=== PATIENT | female | born 1975 | race Caucasian/White ===

== ENCOUNTER 2016-10-29 10:14 | Emergency (ER) | payer OTHER ==
[~2016-10-29] VITALS: Ht 157.5 cm; Wt 70.0 kg
[~2016-10-29 10:14] MED LIST: IBUP-1542 PO
[2016-10-29 10:16] VITALS: Ht 157.5 cm; Wt 70.0 kg
--- NOTE | 2016-10-29 10:36 | ERD ---
ER Documentation Chief Complaint Date/Time DATE: 10/29/16 TIME: 10:35 Chief Complaint pt bib self with c/o "I have kidney infection" since Sunday HPI Patient is a 40-year-old female who presents to the ED with dysuria and urgency and decrease in urine since 5 days. She states that she has had multiple urinary tract infections in the past. She states that this is exactly what she has expressed in the past. She denies fever or chills. She denies back pain. Denies nausea, vomiting or diarrhea or abdominal pain. Denies headache or dizziness, neck pain or neck stiffness. She has not taken any medication for her symptoms. She is unsure which antibiotic she has taken in the past for her infections. She has no other complaints ROS All systems reviewed and are negative except as per history of present illness. Medications Home Meds Active Scripts Naproxen* (Naprosyn*) 500 Mg Tablet, 500 MG PO BID Y for PAIN AND/OR INFLAMMATION, #30 TAB Prov:FELICITY RODRIGUEZ PA-C 10/29/16 Nitrofurantoin Monohyd Macrocr* (Macrobid*) 100 Mg Capsr, 100 MG PO BID for 14 Days, CAP Prov:FELICITY RODRIGUEZ PA-C 10/29/16 Ibuprofen* (Motrin*) 600 Mg Tab, 600 MG PO Q6H Y for PAIN AND OR ELEVATED TEMP, #30 TAB Prov:ANGIE FRANCES PA-C 09/04/15 Ibuprofen* (Motrin*) 600 Mg Tab, 600 MG PO Q6H Y for PAIN AND OR ELEVATED TEMP, #30 Prov:CHEMA GRIFFITHS MD 02/09/15 Allergies Allergies: Coded Allergies: No Known Allergy (Unverified , 09/04/15) PMhx/Soc History of Surgery: No Anesthesia Reaction: No Hx Neurological Disorder: No Hx Respiratory Disorders: No Hx Cardiac Disorders: No Hx Psychiatric Problems: No Hx Miscellaneous Medical Probl: No Hx Alcohol Use: No Hx Substance Use: No Hx Tobacco Use: No FmHx Family History: No coronary disease, No diabetes, No other Physical Exam Vitals Vital Signs Date Time Temp Pulse Resp B/P Pulse Ox O2 Delivery O2 Flow Rate FiO2 10/29/16 10:16 98.3 71 16 119/60 97 Physical Exam GENERAL: Well-developed, well-nourished female. Appears in no acute distress. HEAD: Normocephalic, atraumatic. LUNG: Clear to auscultation bilaterally. No rhonchi, wheezing, rales or coarse breath sounds. HEART: Regular rate and rhythm. No murmurs, rubs or gallops. ABDOMEN: No scars, ecchymosis or rashes noted. Soft, nontender, and nondistended. Positive bowel sounds in all four quadrants. No rebound tenderness , no guarding. (-) McBurneys point tenderness. No CVA tenderness. BACK: No midline tenderness. Extremities: Equal pulses bilaterally. No peripheral clubbing, cyanosis or edema. No unilateral leg swelling. NEUROLOGIC: Alert and oriented. Moving all four extremities. 5/5 strength in all extremities. Normal speech. Steady gait. SKIN: Normal color. Warm and dry. No rashes or lesions. Capillary refill < 2 seconds Results 24 hrs Laboratory Tests Test 10/29/16 10:50 Bedside Urine pH (LAB) 5.5 Bedside Urine Protein (LAB) 2+ Bedside Urine Glucose (UA) Negative Bedside Urine Ketones (LAB) Negative Bedside Urine Blood 3+ Bedside Urine Nitrite (LAB) Negative Bedside Urine Leukocyte Esterase (L 1+ Procedures/MDM ER COURSE: I kept the patient and/or family informed of laboratory and diagnostic imaging results throughout the emergency room course. Laboratory studies Urine dip 1+ leukocytes, no nitrites, 3+ blood. Negative test MEDICAL DECISION MAKING: This is a 40-year-old female who presents with dysuria and urgency 5 days. Vital signs were reviewed. Patient is afebrile. Patient is not hypoxic. Patient has a UTI. Low suspicion for ovarian torsion, PID, tuboovarian abscess , ectopic , bowel obstruction, pyelonephritis, UTI, appendicitis, cervicitis, septic , molar . Low suspicion for septic stone, obstructive stone, nephrolithiasis. DISCHARGE: At this time, patient is stable for discharge and outpatient management with no new complaints during the ER course. Patient was sent home with Drew Candelaria. Patient will be discharged home with instructions to recheck for new or worsening symptoms such as fever, nausea, weakness, LOC and to follow up with primary care in the next 1-2 days. Patient was advised to return to the ER for any new or worsening symptoms. Plan was discussed and patient and/or family understands and agrees. Home instructions were given. Departure Diagnosis: Primary Impression: Dysuria Condition: Stable FELICITY RODRIGUEZ PA-C October 29, 2016 10:36
[2016-10-29 10:47] LABS: URINE BLOOD (Dip) POC 3+ (NEGATIVE)
[2016-10-29] MEDS ORDERED: NITR-58 PO (10:52)
[2016-10-29] MEDS ORDERED: NAPR-260 PO (10:52)
== END 2016-10-29 11:45 | disposition home or self-care (01) ==
LOC: FTE 10:14
DX: R30.0 Dysuria (principal)
CPT/HCPCS: 81003; Z7502; 99283

== ENCOUNTER 2017-03-08 16:31 | Emergency (ER) | payer OTHER ==
[~2017-03-08] VITALS: Ht 157.5 cm; Wt 72.5 kg
[~2017-03-08 16:31] MED LIST changes: +NAPR-260 PO; +NITR-58 PO
[2017-03-08 16:43] VITALS: Ht 157.5 cm; Wt 72.5 kg
[2017-03-08] MEDS ORDERED: IBUPROFEN 800 MG TAB PO ONE (18:30)
--- NOTE | 2017-03-08 18:38 | ERD ---
ER Documentation Chief Complaint Date/Time DATE: 03/08/17 TIME: 18:37 Chief Complaint pain with urination HPI This is a 41-year-old female who presents the emergency department today complaining of burning and pain with urination for the past 2 weeks. States she has not seen her primary care doctor but it is too difficult to get into them. Denies any nausea vomiting, fevers or chills, back pain. States she has had urinary tract infections in the past and this feels similar. ROS All systems reviewed and are negative except as per history of present illness. Medications Home Meds Active Scripts Ibuprofen* (Motrin*) 600 Mg Tab, 600 MG PO Q6, #30 TAB Prov:RICARDO RICHARDSON PA-C 03/08/17 Cephalexin* (Keflex*) 500 Mg Capsule, 500 MG PO QID for 7 Days, CAP Prov:RICARDO RICHARDSON PA-C 03/08/17 Naproxen* (Naprosyn*) 500 Mg Tablet, 500 MG PO BID Y for PAIN AND/OR INFLAMMATION, #30 TAB Prov:FELICITY RODRIGUEZ PA-C 10/29/16 Nitrofurantoin Monohyd Macrocr* (Macrobid*) 100 Mg Capsr, 100 MG PO BID for 14 Days, CAP Prov:FELICITY RODRIGUEZ PA-C 10/29/16 Ibuprofen* (Motrin*) 600 Mg Tab, 600 MG PO Q6H Y for PAIN AND OR ELEVATED TEMP, #30 TAB Prov:ANGIE FRANCES PA-C 09/04/15 Ibuprofen* (Motrin*) 600 Mg Tab, 600 MG PO Q6H Y for PAIN AND OR ELEVATED TEMP, #30 Prov:CHEMA GRIFFITHS MD 02/09/15 Allergies Allergies: Coded Allergies: No Known Allergy (Unverified , 03/08/17) PMhx/Soc History of Surgery: No Anesthesia Reaction: No Hx Neurological Disorder: No Hx Respiratory Disorders: No Hx Cardiac Disorders: No Hx Psychiatric Problems: No Hx Miscellaneous Medical Probl: No Hx Alcohol Use: No Hx Substance Use: No Hx Tobacco Use: No Physical Exam Vitals Vital Signs Date Time Temp Pulse Resp B/P Pulse Ox O2 Delivery O2 Flow Rate FiO2 03/08/17 16:43 97.8 73 19 126/64 99 Physical Exam Const: NAD Head: Atraumatic Eyes: Normal Conjunctiva ENT: Normal External Ears, Nose and Mouth. Neck: Full range of motion..~ No meningismus. Resp: Clear to auscultation bilaterally Cardio: Regular rate and rhythm, no murmurs Abd: Soft, mild suprapubic tenderness, non distended. Normal bowel sounds. No tenderness at McBurney's Skin: No petechiae or rashes Back: No midline or flank tenderness Ext: No cyanosis, or edema Neur: Awake and alert Psych: Normal Mood and Affect Results 24 hrs Laboratory Tests Test 03/08/17 18:43 Urine Color YELLOW Urine Clarity CLOUDY Urine pH 5.0 Urine Specific [place] 1.028 Urine Ketones NEGATIVEmg/dL Urine Nitrite NEGATIVEmg/dL Urine Bilirubin NEGATIVEmg/dL Urine Urobilinogen NEGATIVEmg/dL Urine Leukocyte Esterase 2+[place]/ul Urine Microscopic RBC 2/HPF Urine Microscopic WBC 12/HPF Urine Renal Epithelial Cells FEW/HPF Urine Hemoglobin 2+mg/dL Urine Glucose NEGATIVEmg/dL Urine Total Protein NEGATIVEmg/dl Current Medications Medications (Trade) Dose Ordered Sig/Teddy Route PRN Reason Start Time Stop Time Status Last Admin Dose Admin Ibuprofen (Motrin) 800 mg ONCE ONCE PO 03/08/17 18:30 03/08/17 18:31 DC Cephalexin (Keflex) 500 mg ONCE ONCE PO 03/08/17 19:30 03/08/17 19:31 DC Procedures/MDM This is a 41-year-old female presents the emergency department today complaining of burning and pain with urination for the past 2 weeks. Patient has no other symptoms and I do not feel that she requires a full workup at this time. I did obtain a UA. UA shows 2+ leukocyte esterase and 12 microscopic white blood cells. Negative nitrites. patient symptoms at this time is consistent with urinary tract infection. Patient is afebrile and otherwise well-appearing. She denied any back or flank pain. I have low suspicion for pyelonephritis or nephrolithiasis. Patient indicated she was going to have a hard time getting to her pharmacy and was therefore given her first dose of Keflex here in the emergency department. Patient was also given motrin for pain.. She will be given a prescription for Motrin for home in addition to the Keflex At this time the patient is stable for discharge and outpatient management. Patient should follow up with their PCP in the next 1-2 days. They may return to the emergency department sooner for any persistent or worsening of symptoms. Patient understood and agreed with the plan.. Departure Diagnosis: Primary Impression: UTI (urinary tract infection) Urinary tract infection type: site unspecified Hematuria presence: without hematuria Qualified Code: N39.0 - Urinary tract infection without hematuria, site unspecified Condition: Fair RICARDO RICHARDSON PA-C Mar 08, 2017 18:38
[2017-03-08 19:19] LABS: ADD UMIC YES; UR ASCORBIC ACID NEGATIVE (NEGATIVE); UR BILIRUBIN (Dip) NEGATIVE (NEGATIVE); UR BLOOD (Dip) 2+ mg/dL (NEGATIVE); UR CLARITY CLOUDY (CLEAR); UR COLOR YELLOW (YELLOW); UR GLUCOSE (Dip) NEGATIVE (NEGATIVE); UR KETONES (Dip) NEGATIVE (NEGATIVE); UR LEUKOCYTE ESTERASE (Dip) 2+ Leu/ul (NEGATIVE); UR NITRITE (Dip) NEGATIVE (NEGATIVE); UR RBC 2 /HPF (0-5); UR RENAL EPITHELIAL CELL FEW /HPF (NONE SEEN); UR SPECIFIC GRAVITY (Dip) 1.028 (1.003-1.030); UR TOTAL PROTEIN (Dip) NEGATIVE (NEGATIVE); UR UROBILINOGEN (Dip) NEGATIVE (NEGATIVE)
[2017-03-08] MEDS ORDERED: CEPHALEXIN 500 MG CAP PO ONE (19:30)
[2017-03-08] MEDS ORDERED: CEPH-443 PO (19:30)
[2017-03-08] MEDS ORDERED: IBUP-1542 PO (19:31)
== END 2017-03-08 19:43 | disposition home or self-care (01) ==
LOC: FTE 16:31
DX: N39.0 Urinary tract infection, site not specified (principal)
CPT/HCPCS: 81001; Z7502; Z7610; 99283

== ENCOUNTER 2017-04-27 14:41 | Emergency (ER) | payer OTHER ==
[~2017-04-27] VITALS: Wt 72.0 kg
[~2017-04-27 14:41] MED LIST changes: +CEPH-443 PO
--- NOTE | 2017-04-27 19:03 | RADRPT ---
PROCEDURE: CT brain without IV contrast. CLINICAL INDICATION: Headache/trauma. TECHNIQUE: CT examination of the brain was performed on a 64-slice multidetector scanner. The pat ient was examined without IV contrast. Sagittal and coronal reformatted images were made. The imag es were reviewed on a PACS workstation. DICOM images are available. Total radiation dose: Total CTDIvol: 45 mGy. Total DLP: 720 mGy-cm. One or more of the following dose reduction techniques were used: automated exposure control, adjustment of the mA and/or kV acco rding to patient size, or use of iterative reconstruction technique COMPARISON: None available. FINDINGS: The ventricles and cerebral sulci are normal in size and morphology. The daigle/white matter different iation is well preserved. There is no other abnormal intra-axial high, low density lesion, suggesti ng tumor, infarct, bleeding, av malformation or inflammatory mass. No subdural or epidural hematoma. No midline shift. The visualized paranasal sinuses and mastoid ai r cells are clear. The orbits are unremarkable. The calvarium is intact. There is 2.5 cm x 1.9 cm left frontal scalp sebaceous cyst. There is also 1.4 cm x 0.7 cm left frontal scalp sebaceous cyst . IMPRESSION: 1. Unremarkable CT brain without IV contrast. 2. 2.5 cm x 1.9 cm left frontal scalp sebaceous cyst. 1.4 cm x 0.7 cm left frontal scalp sebaceous cyst. RPTAT: GG .Rl Joya MD, Date Time Electronically viewed and signed by .Rl Joya MD, MD on 04/27/2017 19:02 .Y/
--- NOTE | 2017-04-27 19:11 | RADRPT ---
PROCEDURE: CT Maxillofacial without. CLINICAL INDICATION: Trauma. TECHNIQUE: The study was performed utilizing a multi-slice, multidetector CT scanner. Direct spira l 1 mm axial sections were obtained through the head without the use of intravenous contrast materia l. 1 or more of the following dose reduction techniques were utilized: Automated exposure control, adjustment of the mA and/or kV according to patient's size, iterative reconstruction technique. Co tracey and sagittal reformations were obtained. The images were reviewed on a PACS workstation. DICOM images are available. RADIATION DOSE: CTDIvol: 29.6 mGyDLP: 597.6 mGy-cm COMPARISON: No prior studies are available for comparison. FINDINGS: The maxilla, zygomatic arches and ethmoid bone intact. The nasal bones are intact. The paranasal s inuses are normally aerated. The nasal spine of the maxilla is intact. The visualized mandible is normal in appearance. There is no evidence of facial bone fracture. The soft tissues are unremarka ble. Limited visualization of the intracranial contents is normal in appearance. The nasopharynx a nd oropharynx are normal in appearance. IMPRESSION: 1. Normal CT of the maxillofacial region. No evidence of fracture. RPTAT: HGAS .Linwood Del Valle MD, Date Time Electronically viewed and signed by .Linwood Del Valle MD, on 04/27/2017 19:11 .S/
--- NOTE | 2017-04-27 19:11 | RADRPT ---
PROCEDURE: XR Shoulder. CLINICAL INDICATION: Left shoulder pain TECHNIQUE: 3 views of the left shoulder are available for review. COMPARISON: None available FINDINGS: The osseous structures, articular spaces, and surrounding soft tissues of the left shoulder are inta ct. No acute fracture or dislocation is seen. No radiopaque foreign body is identified. The acromi oclavicular joint is grossly unremarkable. The visualized portions of the left clavicle and upper l eft rib cage are equally unremarkable. IMPRESSION: 1. Unremarkable left shoulder x-ray series. 2. No acute fracture or dislocation is seen. RPTAT: HMJB .Ibrahima Starkey MD, MD Date Time Electronically viewed and signed by .Ibrahima Starkey MD, MD on 04/27/2017 19:10 .B/
[2017-04-27] MEDS ORDERED: ACET500C5 PO (19:50)
[2017-04-27 20:04] VITALS: BP 122/74; PULSE 68; RESP 18; TEMP 97.3
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
== END 2017-04-27 20:05 | disposition home or self-care (01) ==
LOC: FTE 14:41
DX: S40.022A Contusion of left upper arm, initial encounter (principal); S40.021A Contusion of right upper arm, initial encounter; S09.90XA Unspecified injury of head, initial encounter; Y04.8XXA Assault by other bodily force, initial encounter
CPT/HCPCS: 70450; 70486; 73030; Z7502

== ENCOUNTER 2018-04-13 14:46 | Emergency (ER) | END 2018-04-13 16:11 | disposition home or self-care (01) ==

== ENCOUNTER 2018-05-12 08:25 | Emergency (ER) | END 2018-05-12 09:34 | disposition home or self-care (01) ==

== ENCOUNTER 2018-09-27 09:35 | Emergency (ER) | payer OTHER ==
[~2018-09-27] VITALS: Wt 70.4 kg
[~2018-09-27 09:35] MED LIST changes: +ACET500C5 PO; +ALBU8.5H8 INH; +BENZ-6 PO; +CETI1TAB6 PO; +METR70GE15 VAG; -NAPR-260 PO; +NAPR-985 PO
[2018-09-27 09:40] VITALS: BP 138/72; PULSE 78; RESP 18
[2018-09-27] MEDS ORDERED: CEPH-443 PO (11:33)
[2018-09-27] MEDS ORDERED: PHEN-538 PO (11:34)
--- NOTE | 2018-09-27 11:36 | ERD ---
ER Documentation Chief Complaint Chief Complaint dysuria for the past few days. no fevers noted. hx of same HPI 43 female presents with dysuria for last 3 days. She may have mild low back pain. She has fevers, vomiting, abdominal pain, additional complaints that she has a history of UTI. She was last treated in April. Denies . ROS All systems reviewed and are negative except as per history of present illness. Medications Home Meds Active Scripts Phenazopyridine Hcl* (Pyridium*) 200 Mg Tab, 200 MG PO TID PRN for URINARY PAIN, #6 TAB Prov:BRENT GOLDMAN MD 09/27/18 Cephalexin* (Keflex*) 500 Mg Capsule, 500 MG PO QID for 5 Days, CAP Prov:BRENT GOLDMAN MD 09/27/18 Cetirizine/Pseudoephedrine (Zyrtec-D) 5-120 Mg Tab.er.12h, 1 TAB PO Q12, #10 TAB Prov:ANGIE FRANCES PA-C 05/12/18 Benzonatate* (Tessalon Perle*) 100 Mg Capsule, 100 MG PO Q8H PRN for COUGH, #30 CAP Prov:ANGIE FRANCES PA-C 05/12/18 Albuterol Sulfate* (Proair HFA*) 8.5 Gm Hfa.aer.ad, 2 PUFF INH Q4H PRN for WHEEZING AND SOB, #1 INHALER Prov:ANGIE FRANCES PA-C 05/12/18 Cephalexin* (Keflex*) 500 Mg Capsule, 500 MG PO QID for 7 Days, CAP Prov:ANNEMARIE CHERRY PA-C 04/13/18 Metronidazole* (Metrogel* Vaginal) 0.75% -70 Gram Gel.w.appl, 1 APPFUL VAG HS, #7 TUB Prov:ANNEMARIE CHERRY PA-C 04/13/18 Acetaminophen* (Tylophen*) 500 Mg Capsule, 1 CAP PO Q6H PRN for PAIN AND OR ELEVATED TEMP, #20 CAP Prov:ELDA RAMOS PA-C 04/27/17 Ibuprofen* (Motrin*) 600 Mg Tab, 600 MG PO Q6, #30 TAB Prov:RICARDO RICHARDSONC 03/08/17 Cephalexin* (Keflex*) 500 Mg Capsule, 500 MG PO QID for 7 Days, CAP Prov:RICARDO RICHARDSONC 03/08/17 Naproxen* (Naprosyn*) 500 Mg Tablet, 500 MG PO BID PRN for PAIN AND/OR INFLAMMATION, #30 TAB Prov:FELICITY RODRIGUEZC 10/29/16 Nitrofurantoin Monohyd Macrocr* (Macrobid*) 100 Mg Capsr, 100 MG PO BID for 14 Days, CAP Prov:FELICITY RODRIGUEZ-C 10/29/16 Ibuprofen* (Motrin*) 600 Mg Tab, 600 MG PO Q6H PRN for PAIN AND OR ELEVATED TEMP, #30 TAB Prov:ANGIE FRANCESC 09/04/15 Ibuprofen* (Motrin*) 600 Mg Tab, 600 MG PO Q6H PRN for PAIN AND OR ELEVATED TEMP, #30 Prov:CHEMA GRIFFITHS MD 02/09/15 Allergies Allergies: Coded Allergies: No Known Allergy (Unverified , 07/11/18) PMhx/Soc History of Surgery: No Anesthesia Reaction: No Hx Neurological Disorder: No Hx Respiratory Disorders: No Hx Cardiac Disorders: No Hx Psychiatric Problems: No Hx Miscellaneous Medical Probl: No Hx Alcohol Use: No Hx Substance Use: No Hx Tobacco Use: No FmHx Family History: No diabetes, No coronary disease, No other Physical Exam Vitals Vital Signs Date Temp Pulse Resp B/P (MAP) Pulse Ox O2 O2 Flow FiO2 Time Delivery Rate 09/27/18 99.2 78 18 138/72 98 09:40 (94) Physical Exam Const: No acute distress Head: Atraumatic Eyes: Normal Conjunctiva ENT: Normal External Ears, Nose and Mouth. Neck: Full range of motion. No meningismus. Resp: Clear to auscultation bilaterally Cardio: Regular rate and rhythm, no murmurs Abd: Soft, non tender, non distended. Normal bowel sounds Skin: No petechiae or rashes Back: No midline or flank tenderness Ext: No cyanosis, or edema Neur: Awake and alert Psych: Normal Mood and Affect Results 24 hrs Laboratory Tests Test 09/27/18 11:08 09/27/18 11:10 POC Beta HCG, Qualitative NEGATIVE Bedside Urine pH (LAB) 7.5 Bedside Urine Protein (LAB) 1+ Bedside Urine Glucose (UA) Negative Bedside Urine Ketones (LAB) Negative Bedside Urine Blood 2+ Bedside Urine Nitrite (LAB) Negative Bedside Urine Leukocyte Esterase (L Trace Current Medications Medications Dose Sig/Teddy Start Time Status Last (Trade) Ordered Route PRN Stop Time Admin Dose Reason Admin 650 mg ONCE ONCE 09/27/18 Acetaminophen PO 12:00 (Tylenol 09/27/18 12:01 Tab) Cephalexin 500 mg ONCE ONCE 09/27/18 (Keflex) PO 12:00 09/27/18 12:01 200 mg ONCE ONCE 09/27/18 Phenazopyridi PO 12:00 ne HCl 09/27/18 12:01 (Pyridium) Procedures/MDM Patient presents with dysuria for the last 3 days with essentially normal exam. There are trace leukocytes and hemoglobin. hCG is negative. Patient has no signs of significant abdominal pain, flank pain, SIRS criteria. She will treated with Keflex, Pyridium, instructions for fluids, return precautions for fevers, vomiting, abdominal pain, new worsening symptoms. Doubt tubo-ovarian a bscess. PID a consideration but patient may follow-up with primary doctor for further evaluation as patient is well-appearing. The patient was stable with no new complaints during the ER course. Clinically, there is no current evidence to suggest meningitis, sepsis, acute abdomen, pneumonia, stroke, acute coronary syndrome, pulmonary embolism, aortic dissection or any other emergent condition appearing to require further evaluation or hospitalization. Patient counseled regarding my diagnostic impression and care plan. Prior to discharge all questions answered. Pt agrees with treatment plan and understands strict return precautions. Pt is instructed to follow up with primary care provider within 24- 48 hours. Precautionary instructions provided including instructions to return to the ER if not improving or for any worsening or changing symptoms or concerns. Departure Diagnosis: Primary Impression: Dysuria Condition: Stable Patient Instructions: Urinary Tract Infections in Women Referrals: TYRA GALEAS (PCP) Additional Instructions: We will treat for urinary tract infection. Recheck for worsening pain, fevers, vomiting, new worsening symptoms. BRENT GLODMAN MD Sep 27, 2018 11:36
[2018-09-27] MEDS ORDERED: CEPHALEXIN 500 MG CAP PO ONE (12:00)
[2018-09-27] MEDS ORDERED: PHENAZOPYRIDINE 100 MG TAB PO ONE (12:00)
[2018-09-27] MEDS ORDERED: ACETAMINOPHEN 325 MG TAB PO ONE (12:00)
== END 2018-09-27 12:29 | disposition home or self-care (01) ==
LOC: FTE 09:35
DX: R30.0 Dysuria (principal)
CPT/HCPCS: 81003; 81025; Z7502; Z7610; 99283

== ENCOUNTER 2018-11-24 12:24 | Emergency (ER) | payer OTHER ==
[~2018-11-24] VITALS: Ht 157.5 cm; Wt 72.8 kg
[~2018-11-24 12:24] MED LIST changes: +PHEN-538 PO
[2018-11-24 12:25] VITALS: Ht 157.5 cm; Wt 72.8 kg
[2018-11-24] MEDS ORDERED: traMADol 50 MG TAB PO ONE (14:00)
[2018-11-24] MEDS ORDERED: LORAZEPAM 0.5 MG TAB PO ONE (14:00)
[2018-11-24 17:31] VITALS: BP 128/67; PULSE 78; RESP 18
--- NOTE | 2018-11-24 20:34 | ERD ---
ER Documentation Chief Complaint Chief Complaint bilat breast pain x 2 days HPI History of Present Illness: 43-year-old female who denies a past medical history coming in today with complaint of right breast pain is been present for 2 days. Patient reports having a mammogram approximately 2 weeks ago and had negative findings so an ultrasound was done on her right breast on 11/22/2018. Patient reports that she was told she had malignant findings and she needed follow-up care. Patient is concerned because now she is having right breast pain. At home pharmacological/nonpharmacological treatment for symptoms: Denies Denies social concerns; Denies recent foreign travel ROS All systems reviewed and are negative except as per history of present illness. Medications Home Meds Active Scripts Phenazopyridine Hcl* (Pyridium*) 200 Mg Tab, 200 MG PO TID PRN for URINARY PAIN, #6 TAB Prov:BRENT GOLDMAN MD 09/27/18 Cephalexin* (Keflex*) 500 Mg Capsule, 500 MG PO QID for 5 Days, CAP Prov:BRENT GOLDMAN MD 09/27/18 Cetirizine/Pseudoephedrine (Zyrtec-D) 5-120 Mg Tab.er.12h, 1 TAB PO Q12, #10 TAB Prov:ANGIE FRANCES PA-C 05/12/18 Benzonatate* (Tessalon Perle*) 100 Mg Capsule, 100 MG PO Q8H PRN for COUGH, #30 CAP Prov:ANGIE FRANCES PA-C 05/12/18 Albuterol Sulfate* (Proair HFA*) 8.5 Gm Hfa.aer.ad, 2 PUFF INH Q4H PRN for WHEEZING AND SOB, #1 INHALER Prov:ANGIE FRANCES PA-C 05/12/18 Cephalexin* (Keflex*) 500 Mg Capsule, 500 MG PO QID for 7 Days, CAP Prov:ANNEMARIE CHERRY PA-C 04/13/18 Metronidazole* (Metrogel* Vaginal) 0.75% -70 Gram Gel.w.appl, 1 APPFUL VAG HS, #7 TUB Prov:ANNEMARIE CHERRY PA-C 04/13/18 Acetaminophen* (Tylophen*) 500 Mg Capsule, 1 CAP PO Q6H PRN for PAIN AND OR ELEVATED TEMP, #20 CAP Prov:ELDA RAMOSC 04/27/17 Ibuprofen* (Motrin*) 600 Mg Tab, 600 MG PO Q6, #30 TAB Prov:RICARDO RICHARDSONC 03/08/17 Cephalexin* (Keflex*) 500 Mg Capsule, 500 MG PO QID for 7 Days, CAP Prov:RICARDO RICHARDSONC 03/08/17 Naproxen* (Naprosyn*) 500 Mg Tablet, 500 MG PO BID PRN for PAIN AND/OR INFLAMMATION, #30 TAB Prov:FELICITY RODRIGUEZ PA-C 10/29/16 Nitrofurantoin Monohyd Macrocr* (Macrobid*) 100 Mg Capsr, 100 MG PO BID for 14 Days, CAP Prov:FELICITY RODRIGUEZC 10/29/16 Ibuprofen* (Motrin*) 600 Mg Tab, 600 MG PO Q6H PRN for PAIN AND OR ELEVATED TEMP, #30 TAB Prov:ANGIE FRANCESC 09/04/15 Ibuprofen* (Motrin*) 600 Mg Tab, 600 MG PO Q6H PRN for PAIN AND OR ELEVATED TEMP, #30 Prov:CHEMA GRIFFITHS MD 02/09/15 Allergies Allergies: Coded Allergies: No Known Allergy (Unverified , 11/24/18) PMhx/Soc History of Surgery: No Anesthesia Reaction: No Hx Neurological Disorder: No Hx Respiratory Disorders: No Hx Cardiac Disorders: No Hx Psychiatric Problems: No Hx Miscellaneous Medical Probl: Yes (chronic back pain) Hx Alcohol Use: Yes (social) Hx Substance Use: No Hx Tobacco Use: No FmHx Family History: coronary disease; No diabetes Physical Exam Vitals Vital Signs Date Temp Pulse Resp B/P (MAP) Pulse Ox O2 O2 Flow FiO2 Time Delivery Rate 11/24/18 98.6 78 18 128/67 98 Room Air 17:31 (87) 11/24/18 99.4 80 18 133/61 98 12:25 (85) Physical Exam Const: No acute distress, afebrile, anxious Head: Atraumatic Eyes: Normal Conjunctiva ENT: Normal External Ears, Nose and Mouth. Neck: Full range of motion. No meningismus. Resp: Clear to auscultation bilaterally Cardio: Regular rate and rhythm, no murmurs Abd: Soft, non tender, non distended. No guarding, no masses, no rigidity Skin: No petechiae or rashes Back: No midline or flank tenderness Ext: No cyanosis, or edema Neur: Awake and alert x3, speaking in clear sentences, no focal deficits or facial asymmetry Psych: Normal Mood and Affect Breast: left breast: No palpable masses, no skin changes, no warmth, no erythema, no nipple inversion; Breast: RIGHT breast: Tenderness to palpation to patient's left upper quadrant with dense/firm finding, no skin changes, no warmth, no erythema,, no nipple inversion; Results 24 hrs Current Medications Medications Dose Sig/Teddy Start Time Status Last (Trade) Ordered Route PRN Stop Time Admin Dose Reason Admin Lorazepam 0.5 mg ONCE ONCE 11/24/18 DC (Ativan) PO 14:00 11/24/18 14:01 Tramadol 50 mg ONCE ONCE 11/24/18 DC HCl PO 14:00 (Ultram) 11/24/18 14:01 Procedures/MDM ED course includes a thorough examination and history. Medications: Ativan, tramadol Imaging: Breast ultrasound (ordered due to tenderness to palpation and mild elevation iN temperature, rule out abscess) Labs: Low suspicion for life-threatening medical emergency. Low suspicion for infectious process that requires antibiotics at this time. Otherwise healthy patient presenting with constellation of symptoms likely representing right breast pain secondary to prominent benign lymph node as characterized by history, physical exam findings, imaging findings. Breast ultrasound showing: IMPRESSION: No sonographic evidence of malignancy. No abscess, fluid collection or hematoma. Benign right upper inner quadrant 7 mm intramammary lymph node. ACR BIRADS 1: NEGATIVE. RPTAT: EE .Naomi Ramirez MD, MD Date Time Electronically viewed and signed by .Naomi Ramirez MD, on 11/24/2018 16:55 Patient reassessment 1720: Results of ultrasound reviewed with patient. Reassurance provided that the current ultrasound does not show any malignant findings but is very important for patient to follow-up outpatient to rule out any malignancies and obtainment biopsies if needed. Patient verbalized understanding of instructions. Patient hemodynamically stable. No respiratory distress, otherwise relatively well appearing and nontoxic. Disposition given. Patient educated on diagnoses, prescriptions, follow-up care, return p recautions. Strict return precautions given for worsening condition; questions answered discharge. Disposition for discharge with followup in 2 days with PCP/clinic. Departure Diagnosis: Primary Impression: Breast pain Condition: Stable Patient Instructions: Breast Self-Exam (BSE) Referrals: [facility], [facility] YOU HAVE RECEIVED A MEDICAL SCREENING EXAM AND THE RESULTS INDICATE THAT YOU DO NOT HAVE A CONDITION THAT REQUIRES URGENT TREATMENT IN THE EMERGENCY DEPARTMENT. FURTHER EVALUATION AND TREATMENT OF YOUR CONDITION CAN WAIT UNTIL YOU ARE SEEN IN YOUR DOCTORS OFFICE WITHIN THE NEXT 1-2 DAYS. IT IS YOUR RESPONSIBILITY TO MAKE AN APPOINTMENT FOR FOLOW-UP CARE. IF YOU HAVE A PRIMARY DOCTOR --you should call your primary doctor and schedule an appointment IF YOU DO NOT HAVE A PRIMARY DOCTOR YOU CAN CALL OUR PHYSICIAN REFERRAL HOTLINE AT IF YOU CAN NOT AFFORD TO SEE A PHYSICIAN YOU CAN CHOSE FROM THE FOLLOWING [facility] [address] [facility] [address] [facility]. [facility] [address] [facility] [facility] [address] [facility]. [facility] [address] [facility]. [facility]. [address] [facility]. [facility] YOU HAVE RECEIVED A MEDICAL SCREENING EXAM AND THE RESULTS INDICATE THAT YOU DO NOT HAVE A CONDITION THAT REQUIRES URGENT TREATMENT IN THE EMERGENCY DEPARTMENT. FURTHER EVALUATION AND TREATMENT OF YOUR CONDITION CAN WAIT UNTIL YOU ARE SEEN IN YOUR DOCTORS OFFICE WITHIN THE NEXT 1-2 DAYS. IT IS YOUR RESPONSIBILITY TO MAKE AN APPOINTMENT FOR FOLOW-UP CARE. IF YOU HAVE A PRIMARY DOCTOR --you should call your primary doctor and schedule and appointment IF YOU DO NOT HAVE A PRIMARY DOCTOR YOU CAN CALL OUR PHYSICIAN REFERRAL HOTLINE AT . IF YOU CAN NOT AFFORD TO SEE A PHYSICIAN YOU CAN CHOSE FROM THE FOLLOWING [facility] INSTITUTIONS: [facility] [address] [place] [address] [facility] [address] [place] [address] [facility] + [facility] [address] [place] [address] Additional Instructions: Thank you very much for allowing us to participate in your care. Your health and safety is our top priority at [facility]. It is important to read all discharge instructions and education provided in your discharge packet. Call your primary care doctor TOMORROW for an appointment during the next 2-4 days and bring all the information. If the symptoms get worse and your provider is unavailable, return to the Emergency Department immediately. NORA VALDEZ NP Nov 24, 2018 20:34
== END 2018-11-24 17:32 | disposition home or self-care (01) ==
LOC: FTE 12:24
DX: N64.4 Mastodynia (principal)
CPT/HCPCS: 76641; Z7502

== ENCOUNTER 2018-12-02 11:00 | Emergency (ER) | payer OTHER ==
[~2018-12-02] VITALS: Ht 160 cm; Wt 73.8 kg
[2018-12-02 11:04] VITALS: Ht 160 cm; Wt 73.8 kg
[2018-12-02] MEDS ORDERED: FAMO-96 PO (13:20)
[2018-12-02] MEDS ORDERED: IBUP-1542 PO (13:20)
--- NOTE | 2018-12-02 13:25 | ERD ---
ER Documentation Chief Complaint Chief Complaint pain middle of breast and upper back 1 day HPI 43-year-old presents with complaint of epigastric pain for the past day. Patient states that she was here on the and was given ultrasound of the breast. Ultrasound results at that time showed an inflamed node but no infection. Patient states that she does have history of acid reflux. Denies SOB, dyspnea, lower extremity swelling or pain, pain on exertion, diaphoresis, nausea, radiating of pain, recent travel or immobilization, hemoptysis, dsypnea, history of clotting disorder, syncope, fever, or cough. ROS All systems reviewed and are negative except as per history of present illness. Medications Home Meds Active Scripts Famotidine* (Pepcid*) 20 Mg Tablet, 20 MG PO BID for 14 Days, TAB Prov:NICHOLE GALAVIZ 12/02/18 Ibuprofen* (Motrin*) 600 Mg Tab, 600 MG PO Q6, #30 TAB Prov:NICHOLE GALAVIZ 12/02/18 Phenazopyridine Hcl* (Pyridium*) 200 Mg Tab, 200 MG PO TID PRN for URINARY PAIN, #6 TAB Prov:BRENT GOLDMAN MD 09/27/18 Cephalexin* (Keflex*) 500 Mg Capsule, 500 MG PO QID for 5 Days, CAP Prov:BRENT GOLDMAN MD 09/27/18 Cetirizine/Pseudoephedrine (Zyrtec-D) 5-120 Mg Tab.er.12h, 1 TAB PO Q12, #10 TAB Prov:ANGIE FRANCES PA-C 05/12/18 Benzonatate* (Tessalon Perle*) 100 Mg Capsule, 100 MG PO Q8H PRN for COUGH, #30 CAP Prov:ANGIE FRANCES PA-C 05/12/18 Albuterol Sulfate* (Proair HFA*) 8.5 Gm Hfa.aer.ad, 2 PUFF INH Q4H PRN for WHEEZING AND SOB, #1 INHALER Prov:ANGIE FRANCES PA-C 05/12/18 Cephalexin* (Keflex*) 500 Mg Capsule, 500 MG PO QID for 7 Days, CAP Prov:ANNEMARIE CHERRY PA-C 04/13/18 Metronidazole* (Metrogel* Vaginal) 0.75% -70 Gram Gel.w.appl, 1 APPFUL VAG HS, #7 TUB Prov:CHERRYANNEMARIE Calista HOWELL-C 04/13/18 Acetaminophen* (Tylophen*) 500 Mg Capsule, 1 CAP PO Q6H PRN for PAIN AND OR ELEVATED TEMP, #20 CAP Prov:ELDA RAMOS-C 04/27/17 Ibuprofen* (Motrin*) 600 Mg Tab, 600 MG PO Q6, #30 TAB Prov:RICARDO RICHARDSON-C 03/08/17 Cephalexin* (Keflex*) 500 Mg Capsule, 500 MG PO QID for 7 Days, CAP Prov:RICARDO RICHARDSON-C 03/08/17 Naproxen* (Naprosyn*) 500 Mg Tablet, 500 MG PO BID PRN for PAIN AND/OR INFLAMMATION, #30 TAB Prov:FELICITY RODRIGUEZ-C 10/29/16 Nitrofurantoin Monohyd Macrocr* (Macrobid*) 100 Mg Capsr, 100 MG PO BID for 14 Days, CAP Prov:FELICITY RODRIGUEZ-C 10/29/16 Ibuprofen* (Motrin*) 600 Mg Tab, 600 MG PO Q6H PRN for PAIN AND OR ELEVATED TEMP, #30 TAB Prov:ANGIE FRANCES-C 09/04/15 Ibuprofen* (Motrin*) 600 Mg Tab, 600 MG PO Q6H PRN for PAIN AND OR ELEVATED TEMP, #30 Prov:CHEMA GRIFFITHS MD 02/09/15 Allergies Allergies: Coded Allergies: No Known Allergy (Unverified , 11/24/18) PMhx/Soc Medical and Surgical Hx: pt denies Surgical Hx History of Surgery: No Anesthesia Reaction: No Hx Neurological Disorder: No Hx Respiratory Disorders: No Hx Cardiac Disorders: No Hx Psychiatric Problems: No Hx Miscellaneous Medical Probl: Yes (chronic back pain) Hx Alcohol Use: Yes (social) Hx Substance Use: No Hx Tobacco Use: No Smoking Status: Never smoker FmHx Family History: No diabetes, No coronary disease, No other Physical Exam Vitals Vital Signs Date Temp Pulse Resp B/P (MAP) Pulse Ox O2 O2 Flow FiO2 Time Delivery Rate 12/02/18 98.7 80 18 12/60 (44) 98 11:04 Physical Exam Const: No acute distress Head: Atraumatic Eyes: Normal Conjunctiva ENT: Normal External Ears, Nose and Mouth. Neck: Full range of motion. No meningismus. Resp: Clear to auscultation bilaterally Cardio: Regular rate and rhythm, no murmurs Abd: Soft, non tender, non distended. Normal bowel sounds Skin: No petechiae or rashes Back: No midline or flank tenderness Ext: No cyanosis, or edema Neur: Awake and alert Psych: Normal Mood and Affect Results 24 hrs Laboratory Tests Test 12/02/18 12:25 Urine Color BLUE Urine Clarity TURBID Urine pH 5.0 Urine Specific [place] 1.000 Urine Ketones NEGATIVE mg/dL Urine Nitrite NEGATIVE mg/dL Urine Bilirubin NEGATIVE mg/dL Urine Urobilinogen NEGATIVE mg/dL Urine Leukocyte Esterase NEGATIVE [place]/ul Urine Microscopic RBC 1 /HPF Urine Microscopic WBC 2 /HPF Urine Squamous Epithelial Cells FEW /HPF Urine Hemoglobin NEGATIVE mg/dL Urine Glucose NEGATIVE mg/dL Urine Total Protein NEGATIVE mg/dl Procedures/MDM DIAGNOSTIC IMAGING REPORT Patient: MARY ELLEN RYAN : 1975 Age: 43 Sex: F MR #: [id number] DOS: 12/02/18 1213 Ordering MD: NICHOLE GALAVIZ Location: [facility] Room/Bed: PROCEDURE: XR Chest. CLINICAL INDICATION: Shortness of breath. TECHNIQUE: Single frontal view. COMPARISON: 02/09/2015 FINDINGS: The lungs are clear. The heart size is normal. There is no pleural effusion. There is no pneumothorax. IMPRESSION: No focal consolidation. RPTAT: [facility] Physician Selin Date Time Electronically viewed and signed by Physician Selin on 12/02/2018 12:50 RD/ CC: NICHOLE GALAVIZ [id number] EKG: Rate/Rhythm: Normal Sinus Rhythm QRS, ST, T-waves: No changes consistent w/ acute ischemia Impression: No evidence of ischemia or arrhythmia MDM: Chest x-ray was performed results within normal limits. EKG was within normal limits. I have low suspicition for acute coronary syndrome, pulmonary embolism, aortic dissection, AAA, pneumothorax, esophageal rupture, pericarditis, myocarditis, or pneumonia based on EKG, imaging, labs, patient history and exam. At this time, patient is stable for discharge and outpatient management. I have instructed the patient to follow-up with his/her primary care physician in 1-2 days. I have discussed with the patient the possibility of needing to see a specialist for further workup and imaging studies if symptoms persist. I have instructed the patient to promptly return to the ER for any new or worsening symptoms including but not limited to increased pain, fever, nausea, vomiting, weakness or LOC. The patient and/or family expressed understanding of and agreement with this plan. All questions were answered. Home care instructions were provided. DISCLAIMER: Inadvertent spelling and grammatical errors are likely due to EHR/dictation software use and do not reflect on the overall quality of patient care. Also, please note that the electronic time recorded on this note does not necessarily reflect the actual time of the patient encounter. Departure Diagnosis: Primary Impression: GERD (gastroesophageal reflux disease) Additional Impression: Epigastric pain Condition: Stable Patient Instructions: Chest Wall Pain, Costochondritis, Gerd (Adult) Additional Instructions: FOLLOW UP WITH YOUR PRIMARY CARE PHYSICIAN TOMORROW.Return to this facility if you are not improving as expected. Your symptoms are consistent with GERD. Take the famotidine for 2 weeks and if symptoms resolve then there is no need to take the ibuprofen. If symptoms do not resolve you can try taking the ibuprofen and see if it helps. NICHOLE GALAVIZ Dec 02, 2018 13:25
== END 2018-12-02 13:51 | disposition home or self-care (01) ==
LOC: FTE 11:00
DX: K21.9 Gastro-esophageal reflux disease without esophagitis (principal)
CPT/HCPCS: 71045; 81001; 93005; Z7502

== ENCOUNTER 2019-01-04 14:20 | Emergency (ER) | payer OTHER ==
[~2019-01-04] VITALS: Ht 157.5 cm; Wt 72.7 kg
[~2019-01-04 14:20] MED LIST changes: +FAMO-96 PO
[2019-01-04 14:23] VITALS: BP 135/80; PULSE 76; RESP 18; Ht 157.5 cm; Wt 72.7 kg
--- NOTE | 2019-01-04 15:22 | ERD ---
ER Documentation Chief Complaint Chief Complaint I have a UTI, too much pain to wait for my appt on sunday HPI 43-year-old female presents with dysuria for the last 3 days. She denies feve rs, vomiting, flank pain. She has mild suprapubic pressure type pain. She has a history of frequent UTI, last treated 2 months ago. ROS All systems reviewed and are negative except as per history of present illness. Medications Home Meds Active Scripts Phenazopyridine Hcl* (Pyridium*) 200 Mg Tab, 200 MG PO TID PRN for URINARY PAIN, #6 TAB Prov:BRENT GOLDMAN MD 01/04/19 Cephalexin* (Keflex*) 500 Mg Capsule, 500 MG PO QID for 5 Days, CAP Prov:BRENT GOLDMAN MD 01/04/19 Famotidine* (Pepcid*) 20 Mg Tablet, 20 MG PO BID for 14 Days, TAB Prov:NICHOLE GALAVIZ 12/02/18 Ibuprofen* (Motrin*) 600 Mg Tab, 600 MG PO Q6, #30 TAB Prov:NICHOLE GALAVIZ 12/02/18 Phenazopyridine Hcl* (Pyridium*) 200 Mg Tab, 200 MG PO TID PRN for URINARY PAIN, #6 TAB Prov:BRENT GOLDMAN MD 09/27/18 Cephalexin* (Keflex*) 500 Mg Capsule, 500 MG PO QID for 5 Days, CAP Prov:BRENT GOLDMAN MD 09/27/18 Cetirizine/Pseudoephedrine (Zyrtec-D) 5-120 Mg Tab.er.12h, 1 TAB PO Q12, #10 TAB Prov:ANGIE FRANCES PA-C 05/12/18 Benzonatate* (Tessalon Perle*) 100 Mg Capsule, 100 MG PO Q8H PRN for COUGH, #30 CAP Prov:ANGIE FRANCES PA-C 05/12/18 Albuterol Sulfate* (Proair HFA*) 8.5 Gm Hfa.aer.ad, 2 PUFF INH Q4H PRN for WHEEZING AND SOB, #1 INHALER Prov:ANGIE FRANCES PA-C 12/9/18 Cephalexin* (Keflex*) 500 Mg Capsule, 500 MG PO QID for 7 Days, CAP Prov:ANNEMARIE CHERRYC 04/13/18 Metronidazole* (Metrogel* Vaginal) 0.75% -70 Gram Gel.w.appl, 1 APPFUL VAG HS, #7 TUB Prov:ANNEMARIE CHERRYC 04/13/18 Acetaminophen* (Tylophen*) 500 Mg Capsule, 1 CAP PO Q6H PRN for PAIN AND OR ELEVATED TEMP, #20 CAP Prov:ELDA RAMOSC 04/27/17 Ibuprofen* (Motrin*) 600 Mg Tab, 600 MG PO Q6, #30 TAB Prov:RICARDO RICHARDSONC 03/08/17 Cephalexin* (Keflex*) 500 Mg Capsule, 500 MG PO QID for 7 Days, CAP Prov:RICARDO RICHARDSONC 03/08/17 Naproxen* (Naprosyn*) 500 Mg Tablet, 500 MG PO BID PRN for PAIN AND/OR INFLAMMATION, #30 TAB Prov:FELICITY RODRIGUEZC 10/29/16 Nitrofurantoin Monohyd Macrocr* (Macrobid*) 100 Mg Capsr, 100 MG PO BID for 14 Days, CAP Prov:FELICITY RODRIGUEZC 10/29/16 Ibuprofen* (Motrin*) 600 Mg Tab, 600 MG PO Q6H PRN for PAIN AND OR ELEVATED TEMP, #30 TAB Prov:ANGIE FRANCESC 09/04/15 Ibuprofen* (Motrin*) 600 Mg Tab, 600 MG PO Q6H PRN for PAIN AND OR ELEVATED TEMP, #30 Prov:CHEMA GRIFFITHS MD 02/09/15 Allergies Allergies: Coded Allergies: No Known Allergy (Unverified , 01/04/19) PMhx/Soc Medical and Surgical Hx: pt denies Surgical Hx History of Surgery: No Anesthesia Reaction: No Hx Neurological Disorder: No Hx Respiratory Disorders: No Hx Cardiac Disorders: No Hx Psychiatric Problems: No Hx Miscellaneous Medical Probl: Yes (chronic back pain) Hx Alcohol Use: Yes (social) Hx Substance Use: No Hx Tobacco Use: No Smoking Status: Never smoker FmHx Family History: No diabetes, No coronary disease, No other Physical Exam Vitals Vital Signs Date Temp Pulse Resp B/P (MAP) Pulse Ox O2 O2 Flow FiO2 Time Delivery Rate 01/04/19 98.2 76 18 135/80 99 14:23 (98) Physical Exam Const: No acute distress Head: Atraumatic Eyes: Normal Conjunctiva ENT: Normal External Ears, Nose and Mouth. Neck: Full range of motion. No meningismus. Resp: Clear to auscultation bilaterally Cardio: Regular rate and rhythm, no murmurs Abd: Soft, non tender, non distended. Normal bowel sounds. Minimal suprapubic tenderness without tenderness at McBurney's point no rebound no Williamson sign. No CVA tenderness. Skin: No petechiae or rashes Back: No midline or flank tenderness Ext: No cyanosis, or edema Neur: Awake and alert Psych: Normal Mood and Affect Results 24 hrs Laboratory Tests Test 01/04/19 14:59 01/04/19 15:01 POC Beta HCG, Qualitative NEGATIVE Bedside Urine pH (LAB) 5.5 Bedside Urine Protein (LAB) 2+ Bedside Urine Glucose (UA) Negative Bedside Urine Ketones (LAB) Negative Bedside Urine Blood 3+ Bedside Urine Nitrite (LAB) Negative Bedside Urine Leukocyte Esterase (L 1+ Current Medications Medications Dose Sig/Teddy Start Time Status Last (Trade) Ordered Route PRN Stop Time Admin Dose Reason Admin Cephalexin 500 mg ONCE ONCE 01/04/19 UNV (Keflex) PO 15:30 01/04/19 15:31 200 mg ONCE ONCE 01/04/19 UNV Phenazopyridi PO 15:30 01/04/19 ne HCl 15:31 (Pyridium) Procedures/MDM Urine shows hemoglobin leukocyte esterase. hCG negative. Patient presents with signs and symptoms of uncomplicated UTI. She is given Keflex and Pyridium and will treat with Keflex, Pyridium, recommendations for fluids, primary care follow-up and return precautions for fevers, vomiting, abdominal pain, new worsening symptoms or as directed. The patient was stable with no new compla ints during the ER course. Clinically, there is no current evidence to suggest meningitis, sepsis, acute abdomen, pneumonia, stroke, acute coronary syndrome, pulmonary embolism, aortic dissection or any other emergent condition appearing to require further evaluation or hospitalization. Patient counseled regarding my diagnostic impression and care plan. Prior to discharge all questions answered. Pt agrees with treatment plan and understands strict return precautions. Pt is instructed to follow up with primary care provider within 24- 48 hours. Precautionary instructions provided including instructions to return to the ER if not improving or for any worsening or changing symptoms or concerns. Disclaimer: Inadvertent spelling and grammatical errors are likely due to EHR/dictation software use and do not reflect on the overall quality of patient care. Also, please note that the electronic time recorded on this note does not necessarily reflect the actual time of the patient encounter. Departure Diagnosis: Primary Impression: UTI (urinary tract infection) Urinary tract infection type: acute cystitis Hematuria presence: without hematuria Qualified Codes: N30.00 - Acute cystitis without hematuria Additional Impression: Genitourinary symptoms Condition: Stable Patient Instructions: Understanding Urinary Tract Infections (UTIs) Additional Instructions: Drink plenty of fluids at home. Recheck for fevers, vomiting, abdominal pain, new worsening symptoms with primary care doctor. BRENT GOLDMAN MD Jan 04, 2019 15:21
[2019-01-04] MEDS ORDERED: PHENAZOPYRIDINE 100 MG TAB PO ONE (15:30)
[2019-01-04] MEDS ORDERED: CEPHALEXIN 500 MG CAP PO ONE (15:30)
== END 2019-01-04 15:48 | disposition home or self-care (01) ==
LOC: FTE 14:20
DX: N30.00 Acute cystitis without hematuria (principal)
CPT/HCPCS: 81003; 81025; Z7502; Z7610; 99283

== ENCOUNTER 2019-02-11 11:09 | Emergency (ER) | payer OTHER ==
[~2019-02-11] VITALS: Wt 74.1 kg
[2019-02-11 11:16] VITALS: BP 117/62; PULSE 73; RESP 20
== END 2019-02-11 14:25 | disposition home or self-care (01) ==
LOC: FTE 11:09
DX: R30.0 Dysuria (principal)
CPT/HCPCS: 81001; 87086; Z7502; 99283